=== PATIENT | female | born 1965 | race Caucasian/White ===

== ENCOUNTER → 2023-06-16 08:55 | Outpatient (REF) | payer BC, SELFPAY | LOC: HWWDC 08:55 | PROVIDERS: ATTENDING PHYSICIAN Physician Assistant Medical | DX: Z12.31 Encounter for screening mammogram for malignant neoplasm of breast (principal) | CPT/HCPCS: 77063; 77067 ==

== ENCOUNTER → 2023-08-18 11:50 | Outpatient (REF) | payer BC, SELFPAY | LOC: HWRAD 11:50 | PROVIDERS: ATTENDING PHYSICIAN Family Medicine | DX: J18.9 Pneumonia, unspecified organism (principal) | CPT/HCPCS: 71046 ==